=== PATIENT | female | born 1985 | race Hispanic/Latino ===

== ENCOUNTER 2021-01-22 10:08 | Emergency (ER) | payer BC ==
[~2021-01-22] VITALS: Ht 172.7 cm; Wt 129.3 kg
[2021-01-22 10:37] LABS: APPEARANCE,URINE Clear (CLEAR); BILIRUBIN,URINE Small (NEGATIVE); COLOR,URINE Dark Yellow (YELLOW); GLUCOSE, URINE (UA) Negative (NEGATIVE); KETONES,URINE Trace mg/dL (NEGATIVE); LEUKOCYTE ESTERASE ,URINE Trace (NEGATIVE); NITRATE,URINE Negative (NEGATIVE); OCCULT BLOOD,URINE Moderate (NEGATIVE); PROTEIN,URINE Trace mg/dL (NEGATIVE)
[2021-01-22 10:40] LABS: HCG,QUAL RESULT NEGATIVE (NEGATIVE)
[2021-01-22 10:54] LABS: BASOPHILS % (AUTO) 0.2 % (0.0-5.0); EOSINOPHILS % (AUTO) 0.5 % (0.0-8.0); HEMATOCRIT 29.5 % (36-48); LYMPHOCYTES % (AUTO) 14.1 % (21.0-51.0); MEAN CORPUSCULAR HEMOGLOBIN 32.9 pg (27.0-33.0); MEAN CORPUSCULAR HGB CONC 33.2 g/dL (32.0-36.0); MONOCYTES % (AUTO) 6.4 % (3.0-13.0); NEUTROPHILS % (AUTO) 78.3 % (40.0-77.0); PLATELET COUNT (AUTO) 69 K/uL (130-400); RED BLOOD CELL COUNT(AUTO) 2.98 MIL/uL (4.00-5.50); RED CELL DISTRIBUTION WIDTH 15.7 % (11.0-15.5); WHITE BLOOD COUNT (AUTO) 6.2 K/uL (4.8-10.8)
[2021-01-22] MEDS ORDERED: 0.9%NACL 1000ML 1,000 ML IV ONE (11:00)
[2021-01-22] MEDS ORDERED: ONDANSETRON 4MG INJ IVP ONE (11:00)
[2021-01-22 11:07] LABS: CREATININE 0.8 mg/dL (0.5-1.5); POTASSIUM 3.7 mmol/L (3.5-5.1)
[2021-01-22 11:12] LABS: ALBUMIN 2.9 g/dL (3.5-5.0); BILIRUBIN,TOTAL 2.1 mg/dL (0.2-1.0); TOTAL PROTEIN, SERUM 7.4 g/dL (6.0-8.3)
[2021-01-22 11:23] LABS: BACTERIA,URINE Many /HPF (None Seen)
[2021-01-22 11:24] LABS: MUCUS,URINE Few LPF (None Seen); SQUAMOUS EPITHELIAL CELL,UR Moderate /HPF (0-2)
[2021-01-22] MEDS ORDERED: KETOROLAC 30MG VIAL (30MG/ML) ONE (11:39)
[2021-01-22] MEDS ORDERED: MORPHINE 4 MG SYG ONE (11:40)
[2021-01-22] MEDS ORDERED: KETOROLAC 30MG VIAL (30MG/ML) IV ONE (12:00)
[2021-01-22] MEDS ORDERED: MORPHINE 4 MG SYG IV ONE (12:00)
[2021-01-22 12:32] VITALS: BP 107/56
[2021-01-22] MEDS ORDERED: CIPR-278 PO (14:35)
[2021-01-22] MEDS ORDERED: HYOS0.124 SL (14:35)
== END 2021-01-22 15:09 | disposition home or self-care (01) ==
LOC: EDH 10:08
DX: A04.9 Bacterial intestinal infection, unspecified (principal); K74.60 Unspecified cirrhosis of liver; R18.8 Other ascites; Z79.1 Long term (current) use of non-steroidal anti-inflammatories (NSAID); Z79.899 Other long term (current) drug therapy
CPT/HCPCS: 36415; 74176; 76705; 80053; 81001; 81025; 83690; 85025; 87088; 96361 ×2; 96374; 96375; 99285; J1885; J2270; J2405; J7030

== ENCOUNTER 2024-04-16 01:31 | Emergency (ER) | payer BC ==
[~2024-04-16] VITALS: Ht 172.7 cm; Wt 128.8 kg
[~2024-04-16 01:31] MED LIST: CIPR-278 PO; HYOS0.124 SL
[2024-04-16 02:06] LABS: BASOPHILS # (AUTO) 0.02 K/uL (0.00-0.20); BASOPHILS % (AUTO) 0.2 % (0.0-5.0); EOSINOPHILS # (AUTO) 0.08 K/uL (0.00-0.70); EOSINOPHILS % (AUTO) 0.9 % (0.0-8.0); HEMATOCRIT 35.4 % (36-48); IMMATURE GRANULOCYTE ABSOLUTE 0.02 K/uL (0-1); LYMPHOCYTES # (AUTO) 1.9 K/uL (1.0-4.8); LYMPHOCYTES % (AUTO) 22.5 % (21.0-51.0); MEAN CORPUSCULAR HEMOGLOBIN 31.6 pg (27.0-33.0); MEAN CORPUSCULAR HGB CONC 33.9 g/dL (32.0-36.0); MEAN CORPUSCULAR VOLUME 93.2 fL (79-99); MONOCYTES # (AUTO) 0.5 K/uL (0.1-1.0); MONOCYTES % (AUTO) 6.2 % (3.0-13.0); PLATELET COUNT (AUTO) 176 K/uL (130-400); RED CELL DISTRIBUTION WIDTH 15.1 % (11.0-15.5); WHITE BLOOD COUNT (AUTO) 8.6 K/uL (4.8-10.8)
[2024-04-16 02:13] LABS: CREATININE 1.2 mg/dL (0.5-1.0); POTASSIUM 3.7 mmol/L (3.5-5.1)
[2024-04-16] MEDS ORDERED: IOHEXOL 350 MG/ML 100ML INFUS..BTL IV ONE (04:21)
--- NOTE | 2024-04-16 04:54 | ERN ---
General Chief Complaint: Mechanical Fall Stated Complaint: C/O PAIN TO ABD, RT UPPER SIDE AFTER FALL IN SHOWE Time Seen by MD: 01:32 Source: patient History of Present Illness Initial Comments Patient is a 38-year-old female coming in to be evaluated for right flank right rib cage pain. Patient states he fell down earlier today she was concerned because she does have a history of liver transplant. She states it she has tenderness to the that area quantifies it 10/27. Allergies: Coded Allergies: No Allergy Information Available (Verified Allergy, Unknown, 01/22/21) Home Meds Active Scripts Hyoscyamine Sulfate (Levsin-Sl) 0.125 Mg Tab.subl, 0.125 MG SL TIDP PRN for ABDOMINAL PAIN, #15 TAB.SL 0 Refills Prov:TRISTAN SCHULTZ MD 01/22/21 Ciprofloxacin HCl (Cipro) 500 Mg Tablet, 500 MG PO BID for 3 Days, #6 TAB 0 Refills Prov:TRISTAN SCHULTZ MD 01/22/21 Past Medical History Past Medical History: Other Medical History Other: LIVER TRANSPLANT (05/2022) Past Surgical History: Cholecystectomy, Other Surgical History Other: LIVER TRANSPLANT Social History Social History: Other Female( History) LMP: Apr 02, 2024 ROS Dictation CONSTITUTIONAL: No chills, no fever, no weakness, no diaphoresis, no malaise. HEAD/FACE: No signs of trauma. EENT: No eye pain, no blurred vision, no tearing, no double vision, no ear pain, no ear discharge, no nose pain, no nasal congestion, no throat pain, no throat swelling, no mouth pain. RESPIRATORY: No cough, no orthopnea, no SOB, no stridor, no wheezing. CARDIOVASCULAR: No chest pain, no edema, no palpitations, no syncope. GASTROINTESTINAL/ABDOMINAL: abdominal pain, no constipation, no diarrhea, no nausea, no vomiting. GENITOURINARY: No abnormal discharge, no dysuria, no frequent urination, no hematuria. No complaints of pain in the genitals. MUSCULOSKELETAL: No back pain, no gout, no joint pain, no joint swelling, no muscle pain, no muscle stiffness, no neck pain. INTEGUMENTARY: No change in color, no change in hair/nails, no dryness, no lesion, no lumps, no rash. NEUROLOGICAL/PSYCH: No anxiety, not depressed, no emotional problem, no headache, no numbness, no pre-existing deficit, no history of seizures, no tremors, no weakness. HEMATOLOGIC/LYMPHATIC: Not anemic, no history of blood clots, no apparent bleeding, no bruising, glands not swollen. All Systems Negative, Except as Noted. Physical Exam Physical Exam Dictation VITAL SIGNS: Reviewed. GENERAL APPEARANCE: Alert, oriented x3, no acute distress, obese. HEAD AND FACE: Non-traumatic. EYES: PERRL, pink conjunctivas, eyelid no trauma, anterior chamber clear. EARS: Pinnas intact and no signs of trauma or erythema. Ear canals clear and no discharge. TMs no erythema. NOSE: No discharge, no bleeding. OROPHARYNX: Mouth normal, teeth no caries, tongue pink. Pharynx clear, no erythema. Tonsils no exudates, no abscesses noted. Mucous membrane moist. NECK: Supple, non-tender, no thyromegaly, no masses, no JVD, no bruits. BREAST: Deferred. CHEST: No tenderness, no crepitus, no paradoxical movement, no retractions. LUNGS: Clear, well-ventilated, symmetric, no rales, no wheezing, no rhonchi, no stridor, good breath sounds bilaterally. HEART: Regular rate, regular rhythm, no murmur, no gallops. VASCULAR: No peripheral edema. ABDOMEN: Soft, positive bowel sounds, nondistended, no guarding, right flank tender, no rebound, no masses no hepatomegaly, no splenomegaly, no Cobb's sign, no hernias. RECTAL: Deferred. GENITAL: Deferred. NEUROLOGICAL: Normal speech, gross motor function intact, gross sensory function intact. MUSCULOSKELETAL: Neck nontender, full range of motion, back nontender, full range of motion. EXTREMITIES: Nontender, full range of motion. SKIN: Color pink, dry, no turgor, no rash, no lacerations, no abrasions, no contusions. LYMPHATICS: Deferred. Results Laboratory and Microbiology Lab and Micro Result Laboratory Tests Test 04/16/24 01:59 White Blood Count 8.6 K/uL (4.8-10.8) Red Blood Count 3.80 MIL/uL (4.00-5.50) L Hemoglobin 12.0 g/dL (12.0-16.0) Hematocrit 35.4 % (36-48) L Mean Corpuscular Volume 93.2 fL (79-99) Mean Corpuscular Hemoglobin 31.6 pg (27.0-33.0) Mean Corpuscular Hemoglobin Concent 33.9 g/dL (32.0-36.0) Red Cell Distribution Width 15.1 % (11.0-15.5) Platelet Count 176 K/uL (130-400) Mean Platelet Volume 11.6 fL (7.5-10.5) H Immature Granulocyte % (Auto) 0.2 % (0-1) Neutrophils (%) (Auto) 70.0 % (40.0-77.0) Lymphocytes (%) (Auto) 22.5 % (21.0-51.0) Monocytes (%) (Auto) 6.2 % (3.0-13.0) Eosinophils (%) (Auto) 0.9 % (0.0-8.0) Basophils (%) (Auto) 0.2 % (0.0-5.0) Neutrophils # (Auto) 6.0 K/uL (1.8-7.7) Lymphocytes # (Auto) 1.9 K/uL (1.0-4.8) Monocytes # (Auto) 0.5 K/uL (0.1-1.0) Eosinophils # (Auto) 0.08 K/uL (0.00-0.70) Basophils # (Auto) 0.02 K/uL (0.00-0.20) Absolute Immature Granulocyte (auto 0.02 K/uL (0-1) Nucleated Red Blood Cells 0.0 % (0.0-0.19) Sodium Level 139 mmol/L (136-145) Potassium Level 3.7 mmol/L (3.5-5.1) Chloride Level 103 mmol/L (101-111) Carbon Dioxide Level 32 mmol/L (21-32) Blood Urea Nitrogen 28 mg/dL (7-18) H Creatinine 1.2 mg/dL (0.5-1.0) H Glomerular Filtration Rate Calc 60 mL/min (>90) Random Glucose 118 mg/dL (70-105) H Total Calcium 9.0 mg/dL (8.5-10.1) Serum Test, Qualitative NEGATIVE (NEGATIVE) Labs Reviewed?: Yes EKG/XRAY/US/CT/MRI CT Scan Comment CT abdomen and pelvis with contrast, impression postsurgical changes of liver transplant, hepatic steatosis, no biliary dilation, no bowel obstruction inflammation, diverticulosis, no hydronephrosis or renal calculus, right lateral wall containing hernia, right lower quadrant subcutaneous to when 9 cm cyst, left adnexal 4.6 cm cyst, MDM MDM: Differential diagnosis: Status post fall, abdominal wall contusion, Patient is a 38-year-old female coming in to be evaluated after she had a fall earlier today in the shower. Patient was concerned that she might have hurt her liver so she was here for evaluation CT did not disclose acute findings. I advised patient appropriate follow up with PCP patient will be discharged with symptomatic medication for symptomatic relief. ED Course Orders Procedure Category Date Status Time Cbc With Differential LAB 04/16/24 Complete 01:34 Basic Metabolic Panel LAB 04/16/24 Complete 01:34 Testing, LAB 04/16/24 Complete Serum Hcg 01:34 Ct Abdomen/Pelvis CT 04/16/24 Taken W/Contrast 02:27 Iohexol (Omnipaque) PHA 04/16/24 Complete 04:21 Current Medications Medications (Trade) Dose Ordered Sig/Cesar Route PRN Reason Start Time Stop Time Status Last Admin Dose Admin Iohexol (Omnipaque) 35,000 mg STK-MED ONCE IV 04/16/24 04:21 04/16/24 04:22 DC Vital Signs Date Time Temp Pulse Resp B/P (MAP) Pulse Ox O2 Delivery O2 Flow Rate FiO2 04/16/24 01:32 98.8 77 20 127/80 99 Room Air DX & DISP Disposition: Discharge Departure Impression: Primary Impression: Status post fall Additional Impressions: Abdominal wall contusion, Abdominal hernia Condition: Stable Scripts Naproxen (Naproxen) 250 Mg Tablet 250 MG PO BID for 7 Days, #14 TAB Prov: MELISSA CARCAMO MD 04/16/24 Additional Instructions: FOLLOW-UP WITH PRIMARY CARE PROVIDER IN 1 TO 2 DAYS. TAKE MEDICATIONS DIRECTED HERE IN THE EMERGENCY ROOM. OKAY TO CONTINUE HOME MEDICATIONS UNLESS OTHERWISE DISCUSSED DURING YOUR VISIT IN THE EMERGENCY ROOM TODAY. RETURN TO YOUR NEAREST EMERGENCY ROOM IF SYMPTOMS WORSEN OR IF THERE IS NO IMPROVEMENT. CALL 911 IF YOU NEED IMMEDIATE ASSISTANCE. TAKE TYLENOL [id number] NEEDED AND IF NO CONTRAINDICATIONS ARE PRESENT. INCREASE ORAL HYDRATION. A WOUND CULTURE OR URINE CULTURE WAS ORDERED HERE IN THE EMERGENCY ROOM DEPARTMENT PLEASE FOLLOW-UP WITH PRIMARY CARE PROVIDER AND ADVISE THEM TO GET REPEAT PORTS FROM OUR FACILITY. IF YOU HAD ANY MELLISSA WRAP/SPLINTS THAT WERE APPLIED HERE, PLEASE DO NOT REMOVE THEM UNTIL YOU SEE YOUR PRIMARY CARE OR SPECIALTY. Referrals: Referrals: VARUN CARNEY (PCP) Time of Disposition: 06:22 MELISSA CARCAMO MD Apr 16, 2024 04:54
[2024-04-16] MEDS ORDERED: NAPR-1196 PO (06:27)
[2024-04-16] MEDS: hydrOXYzine 50MG VIAL 50 MG/ML VIAL IM STA (07:02)
[2024-04-16 07:32] VITALS: BP 122/78; PULSE 74; RESP 16; TEMP 98.4; O2SAT 98
--- NOTE | 2024-04-16 08:21 | HMCIMG ---
CT ABDOMEN/PELVIS W/CONTRAST REASON: right upper extremity pain/ sp fall COMPARISON: None. FINDINGS: Lung bases are clear. There is moderate hepatic steatosis. There are no focal liver lesions. There are surgical clips in the liver hilum. The intrahepatic biliary tree is not distended.. There are normal-appearing kidneys.. Spleen and pancreas appear unremarkable. There has been a previous cholecystectomy. There is mild to sigmoid diverticulosis without evidence of diverticulitis. Bowel loops appear otherwise unremarkable. This includes normal appearance of the appendix There is no evidence of free fluid or intraperitoneal air. There are no focal fluid collections. Aorta and retroperitoneum appear normal. There is a 4 cm left ovarian cyst. There are no adnexal masses. Pelvic soft tissues appear otherwise unremarkable. There is a small ventral hernia in the right lateral abdominal wall, adjacent to the right lobe of the liver, containing only mesenteric fat. There is a 3 cm subcutaneous cyst present just beneath the skin right lower quadrant, probably a sebaceous cyst. Osseous structures appear unremarkable. IMPRESSION: 1. No acute finding in the abdomen or pelvis. 2. Moderate to hepatic steatosis in the liver, no focal liver lesions. CT was performed with one or more following dose reduction techniques: automated exposure control, adjustment of the mA and kv according to patient's size, or use of a iterative reconstruction technique.
== END 2024-04-16 07:33 | disposition home or self-care (01) ==
LOC: EDH 01:31
DX: S30.1XXA Contusion of abdominal wall, initial encounter (principal); K46.9 Unspecified abdominal hernia without obstruction or gangrene; Z90.49 Acquired absence of other specified parts of digestive tract; Z94.4 Liver transplant status; W18.39XA Other fall on same level, initial encounter; Y93.89 Activity, other specified; Y92.89 Other specified places as the place of occurrence of the external cause; Y99.8 Other external cause status
CPT/HCPCS: 99284; 74177; 80048; 84703; 85025; 36415; 96372; J3410; Q9967